=== PATIENT | female | born 1960 | race Caucasian/White ===

== ENCOUNTER 2016-12-28 13:34 | Inpatient (IN) | payer MEDICAID, OTHER ==
[~2016-12-28] VITALS: Ht 167.6 cm; Wt 77.3 kg
[~2016-12-28 13:34] MED LIST: FLUP10 PO; LAMO100 PO; OLAN10TA3 PO; TRAZ-147 PO
[2016-12-28] MEDS ORDERED: LORazepam 2 MG/ML VIAL IM ONE (14:00)
[2016-12-28] MEDS ORDERED: FluPHENAZine HCL 10 MG TABLET PO ONE (14:00)
[2016-12-28] MEDS ORDERED: DiphenhydrAMINE HCL 50 MG/ML VIAL IM ONE (14:00)
[2016-12-28 14:18] LABS: BASOPHILS % (AUTO) 0.4 % (0.0-2.0); EOSINOPHILS % (AUTO) 2.8 % (1.0-6.0); HEMATOCRIT 38.5 % (36-46); HEMOGLOBIN 12.5 g/dL (12.0-16.0); LYMPHOCYTES # (AUTO) 2.6 K/uL (1.0-4.8); LYMPHOCYTES % (AUTO) 30.6 % (22.0-44.0); MEAN CORPUSCULAR HEMOGLOBIN 30.4 pg (26.0-34.0); MEAN CORPUSCULAR HGB CONC 32.4 G/dL (31.0-37.0); MEAN CORPUSCULAR VOLUME 94 fL (80-100); MONOCYTES # (AUTO) 0.8 K/uL (0.1-1.0); MONOCYTES % (AUTO) 9.5 % (2.0-9.0); NEUTROPHILS # (AUTO) 4.8 K/uL (1.8-7.7); NEUTROPHILS % (AUTO) 56.7 % (40.0-70.0); PLATELET COUNT (AUTO) 304 K/uL (150-450); RED BLOOD CELL COUNT(AUTO) 4.11 MIL/uL (4.00-5.20); RED CELL DISTRIBUTION WIDTH 14.6 % (11.5-14.5); WHITE BLOOD COUNT (AUTO) 8.5 K/uL (4.5-11.0)
[2016-12-28 14:27] LABS: ANION GAP 12 mmol/L (8-16); CALCIUM, TOTAL 8.7 mg/dL (8.8-10.5); CARBON DIOXIDE 27 mmol/L (22-29); CHLORIDE 108 mmol/L (98-107); CREATININE 0.71 mg/dL (0.60-1.30); GLOMERULAR FILTR. RATE CALC > 60 mL/min (>60); POTASSIUM 3.4 mmol/L (3.5-5.1); SODIUM SERUM 147 mmol/L (136-145); UREA NITROGEN, BLOOD 17 mg/dL (7-18)
[2016-12-28 14:33] LABS: ALANINE AMINOTRANSFERASE 21 U/L (12-78); ALBUMIN 3.9 g/dL (3.4-5.0); ASPARTATE AMINOTRANSFERASE 17 U/L (15-37); BILIRUBIN,TOTAL 0.5 mg/dL (0.1-1.0); TOTAL PROTEIN, SERUM 7.1 g/dL (6.4-8.2)
[2016-12-28] MEDS ORDERED: HydrOXYzine PAMOATE 50 MG CAPSULE PO PRN (15:45)
[2016-12-28] MEDS ORDERED: MAGNESIUM HYDROXIDE SUSPENSION 30 ML UDCUP PO PRN (15:45)
[2016-12-28] MEDS ORDERED: GuaiFENesin/D-METHORPHAN [SUGAR-FREE] 200-20MG/10 ML SYRUP UDCUP PO PRN (15:45)
[2016-12-28] MEDS ORDERED: ZOLPIDEM TARTRATE 10 MG TABLET PO PRN (15:45)
[2016-12-28] MEDS ORDERED: PROMETHAZINE HCL 25 MG TABLET PO PRN (15:45)
[2016-12-28] MEDS ORDERED: OLANZapine 5 MG RAPDIS TABLET PO PRN (15:45)
[2016-12-28] MEDS ORDERED: ACETAMINOPHEN 325 MG TABLET PO PRN (15:45)
[2016-12-28] MEDS ORDERED: LOPERAMIDE HCL 2 MG CAPSULE PO PRN (15:45)
[2016-12-28] MEDS ORDERED: MAG HYDROX/AL HYDROX/SIMETH ES 30 ML SUSPENSION UDCUP PO PRN (15:45)
[2016-12-28] MEDS ORDERED: TUBERCULIN, PURIFIED PROTEIN DERIVATIVE 5 TU/0.1 ML SYG ID ONE (15:45)
[2016-12-28 18:53] VITALS: BP 119/71
[2016-12-28] MEDS ORDERED: INFLUENZA VIRUS VACCINE QVS 2016-17 (3YR+)/PF 60 MCG/0.5 ML SYRINGE IM ONE (19:30)
[2016-12-28] MEDS ORDERED: PNEUMOCOCCAL VACCINE POLYVALENT 0.5 ML VIAL [PPSV23] IM ONE (19:30)
[2016-12-28] MEDS: THIAMINE HCL 100 MG TABLET PO SCH (20:52)
[2016-12-28] MEDS: OLANZapine 5 MG RAPDIS TABLET PO SCH (21:00)
[2016-12-29] MEDS: THIAMINE HCL 100 MG TABLET PO SCH ×2 (08:54→17:16)
[2016-12-29] MEDS: FOLIC ACID 1 MG TABLET PO SCH (08:54)
[2016-12-29] MEDS: MULTIVITAMINS WITH MINERALS, THERAPEUTIC TABLET PO SCH (08:54)
[2016-12-29] MEDS ORDERED: LORazepam 2 MG/ML VIAL IM ONE (10:00)
[2016-12-29] MEDS ORDERED: FluPHENAZine HCL 2.5 MG/ML INJ IM ONE (10:00)
[2016-12-29] MEDS ORDERED: DiphenhydrAMINE HCL 50 MG/ML VIAL IM ONE (10:00)
[2016-12-29] MEDS ORDERED: TraZODone HCL 150 MG TABLET PO PRN (10:00)
[2016-12-29] MEDS ORDERED: POTASSIUM CHLORIDE 10 MEQ ER TABLET PO ONE (12:00)
[2016-12-29] MEDS: LORazepam 2 MG TABLET PO PRN (17:16)
[2016-12-29] MEDS: OLANZapine 5 MG RAPDIS TABLET PO SCH (20:29)
[2016-12-30] MEDS: MULTIVITAMINS WITH MINERALS, THERAPEUTIC TABLET PO SCH ×2 (09:00→09:27)
[2016-12-30] MEDS: LamoTRIgine 100 MG TABLET PO SCH ×2 (09:00→09:27)
[2016-12-30] MEDS: FOLIC ACID 1 MG TABLET PO SCH ×2 (09:00→09:26)
[2016-12-30] MEDS: THIAMINE HCL 100 MG TABLET PO SCH ×3 (09:00→16:20)
[2016-12-30] MEDS ORDERED: DiphenhydrAMINE HCL 50 MG/ML VIAL ONE (14:07)
[2016-12-30] MEDS ORDERED: DiphenhydrAMINE HCL 50 MG/ML VIAL IM ONE (14:15)
[2016-12-30] MEDS: BENZTROPINE MESYLATE 2 MG TABLET PO SCH (16:21)
[2016-12-30] MEDS: LORazepam 2 MG TABLET PO PRN (17:19)
[2016-12-30] MEDS ORDERED: PALI6 PO (17:30)
[2016-12-30] MEDS ORDERED: TRAZ150 PO (17:30)
[2016-12-30] MEDS ORDERED: BENZ2TAB10 PO (17:30)
[2016-12-30] MEDS ORDERED: PALIPERIDONE 3 MG ER TABLET PO PRN (17:30)
[2016-12-30] MEDS ORDERED: LAMO100 PO (17:30)
[2016-12-30] MEDS ORDERED: PALIPERIDONE PALMITATE 234 MG/1.5 ML SYRINGE IM ONE (17:30)
[2016-12-30] MEDS ORDERED: PALI234D IM (17:30)
[2016-12-30] MEDS ORDERED: PALIPERIDONE 6 MG ER TABLET PO SCH (21:00)
[2016-12-31 08:31] LABS: BASOPHILS % (AUTO) 0.7 % (0.0-2.0); HEMATOCRIT 41.1 % (36-46); HEMOGLOBIN 13.4 g/dL (12.0-16.0); LYMPHOCYTES # (AUTO) 2.2 K/uL (1.0-4.8); LYMPHOCYTES % (AUTO) 36.6 % (22.0-44.0); MEAN CORPUSCULAR HEMOGLOBIN 30.6 pg (26.0-34.0); MEAN CORPUSCULAR HGB CONC 32.6 G/dL (31.0-37.0); MEAN CORPUSCULAR VOLUME 94 fL (80-100); MONOCYTES # (AUTO) 0.5 K/uL (0.1-1.0); MONOCYTES % (AUTO) 8.7 % (2.0-9.0); PLATELET COUNT (AUTO) 266 K/uL (150-450); RED BLOOD CELL COUNT(AUTO) 4.38 MIL/uL (4.00-5.20); RED CELL DISTRIBUTION WIDTH 14.3 % (11.5-14.5)
[2016-12-31 09:00] LABS: ALANINE AMINOTRANSFERASE 17 U/L (12-78); ALBUMIN 3.4 g/dL (3.4-5.0); ANION GAP 10 mmol/L (8-16); ASPARTATE AMINOTRANSFERASE 18 U/L (15-37); BILIRUBIN,TOTAL 0.3 mg/dL (0.1-1.0); CALCIUM, TOTAL 8.6 mg/dL (8.8-10.5); CARBON DIOXIDE 26 mmol/L (22-29); CHLORIDE 107 mmol/L (98-107); CHOL/HDL RATIO 2.6 (3.9-5.7); CREATININE 0.74 mg/dL (0.60-1.30); GLOMERULAR FILTR. RATE CALC > 60 mL/min (>60); POTASSIUM 3.9 mmol/L (3.5-5.1); SODIUM SERUM 143 mmol/L (136-145); THYROID STIMULATING HORMONE 3.24 uIU/mL (0.36-3.74); TOTAL PROTEIN, SERUM 6.7 g/dL (6.4-8.2); UREA NITROGEN, BLOOD 15 mg/dL (7-18)
[2016-12-31] MEDS: FOLIC ACID 1 MG TABLET PO SCH (09:11)
[2016-12-31] MEDS: MULTIVITAMINS WITH MINERALS, THERAPEUTIC TABLET PO SCH (09:11)
[2016-12-31] MEDS: BENZTROPINE MESYLATE 2 MG TABLET PO SCH (09:11)
[2016-12-31] MEDS: LamoTRIgine 100 MG TABLET PO SCH (09:11)
[2016-12-31] MEDS: THIAMINE HCL 100 MG TABLET PO SCH (09:11)
[2016-12-31 10:16] LABS: HEMOGLOBIN A1C 5.2 % (4.5-6.2)
[2017-01-03] MEDS ORDERED: PALIPERIDONE PALMITATE 156 MG/ML SYRINGE IM ONE (09:00)
== END 2016-12-31 11:40 | disposition home or self-care (01) | DRG 753 ==
LOC: EMS 13:36 → B3A 15:06
PROVIDERS: ADMIT Psychiatry & Neurology Psychiatry; ATTEND Psychiatry & Neurology Psychiatry
PROC: GZ51ZZZ Individual Psychotherapy, Behavioral (ICD-10-PCS; principal; 2016-12-28)
DX: F31.2 Bipolar disorder, current episode manic severe with psychotic features (principal); Z91.19 Patient's noncompliance with other medical treatment and regimen; E86.0 Dehydration; E87.6 Hypokalemia; F15.90 Other stimulant use, unspecified, uncomplicated; F12.90 Cannabis use, unspecified, uncomplicated; J45.909 Unspecified asthma, uncomplicated; F17.210 Nicotine dependence, cigarettes, uncomplicated; Z87.891 Personal history of nicotine dependence; Z88.8 Allergy status to other drugs, medicaments and biological substances; Z98.890 Other specified postprocedural states; Z79.899 Other long term (current) drug therapy; Z82.49 Family history of ischemic heart disease and other diseases of the circulatory system
CPT/HCPCS: 83036; 84439; 84443; 86592; 93005; 96372; 99285; G0480; J1200; J2060; J3490

== ENCOUNTER 2017-04-26 20:50 | Inpatient (IN) | payer MEDICAID, OTHER ==
[~2017-04-26] VITALS: Ht 154.9 cm; Wt 68.0 kg
[~2017-04-26 20:50] MED LIST changes: +BENZ2TAB10 PO; -FLUP10 PO; -OLAN10TA3 PO; +PALI234D IM; +PALI6 PO; -TRAZ-147 PO; +TRAZ150 PO
[2017-04-26 21:39] LABS: BASOPHILS % (AUTO) 0.2 % (0.0-2.0); EOSINOPHILS % (AUTO) 1.4 % (1.0-6.0); HEMATOCRIT 38.8 % (36-46); HEMOGLOBIN 13.1 g/dL (12.0-16.0); LYMPHOCYTES # (AUTO) 2.4 K/uL (1.0-4.8); MEAN CORPUSCULAR HEMOGLOBIN 31.2 pg (26.0-34.0); MEAN CORPUSCULAR HGB CONC 33.9 G/dL (31.0-37.0); MEAN CORPUSCULAR VOLUME 92 fL (80-100); MONOCYTES # (AUTO) 1.6 K/uL (0.1-1.0); MONOCYTES % (AUTO) 12.5 % (2.0-9.0); NEUTROPHILS # (AUTO) 8.5 K/uL (1.8-7.7); NEUTROPHILS % (AUTO) 66.9 % (40.0-70.0); PLATELET COUNT (AUTO) 228 K/uL (150-450); RED BLOOD CELL COUNT(AUTO) 4.21 MIL/uL (4.00-5.20); RED CELL DISTRIBUTION WIDTH 13.8 % (11.5-14.5); WHITE BLOOD COUNT (AUTO) 12.7 K/uL (4.5-11.0)
[2017-04-26] MEDS ORDERED: FluPHENAZine HCL 2.5 MG/ML INJ IM ONE (21:45)
[2017-04-26] MEDS ORDERED: LORazepam 2 MG/ML VIAL IM ONE (21:45)
[2017-04-26] MEDS ORDERED: DiphenhydrAMINE HCL 50 MG/ML VIAL IM ONE (21:45)
[2017-04-26 21:57] LABS: ANION GAP 14 mmol/L (8-16); CALCIUM, TOTAL 9.4 mg/dL (8.8-10.5); CARBON DIOXIDE 22 mmol/L (22-29); CHLORIDE 106 mmol/L (98-107); CREATININE 0.81 mg/dL (0.60-1.30); GLOMERULAR FILTR. RATE CALC > 60 mL/min (>60); POTASSIUM 3.4 mmol/L (3.5-5.1); SODIUM SERUM 142 mmol/L (136-145); UREA NITROGEN, BLOOD 25 mg/dL (7-18)
[2017-04-26 22:03] LABS: ALANINE AMINOTRANSFERASE 21 U/L (12-78); ALBUMIN 4.2 g/dL (3.4-5.0); ASPARTATE AMINOTRANSFERASE 25 U/L (15-37); BILIRUBIN,TOTAL 0.9 mg/dL (0.1-1.0); TOTAL PROTEIN, SERUM 7.5 g/dL (6.4-8.2)
[2017-04-26] MEDS ORDERED: QUEtiapine FUMARATE 100 MG TABLET PO PRN (22:45)
[2017-04-26] MEDS ORDERED: ZOLPIDEM TARTRATE 10 MG TABLET PO PRN (22:45)
[2017-04-26 23:00] VITALS: BP 131/74
[2017-04-27] MEDS ORDERED: PNEUMOCOCCAL VACCINE POLYVALENT 0.5 ML VIAL [PPSV23] IM ONE (03:15)
[2017-04-27] MEDS ORDERED: -PHARMACY VACCINE NOTE- MISC ONE ×2 (03:15)
[2017-04-27 08:34] VITALS: BP 108/54
[2017-04-27] MEDS: BENZTROPINE MESYLATE 2 MG TABLET PO SCH ×3 (10:25→16:53)
[2017-04-27] MEDS: LamoTRIgine 100 MG TABLET PO SCH (10:25)
[2017-04-27] MEDS ORDERED: POTASSIUM CHLORIDE 20 MEQ ER TABLET PO ONE (10:30)
[2017-04-27] MEDS: LORazepam 2 MG TABLET PO PRN (16:53)
[2017-04-27] MEDS: PALIPERIDONE 6 MG ER TABLET PO SCH (16:53)
[2017-04-27] MEDS ORDERED: PALIPERIDONE 6 MG ER TABLET PO SCH (21:00)
[2017-04-27] MEDS ORDERED: TraZODone HCL 50 MG TABLET PO SCH (21:00)
[2017-04-28] MEDS ORDERED: PALI6 PO (07:56)
[2017-04-28] MEDS ORDERED: BENZ2TAB10 PO (07:56)
[2017-04-28 08:04] VITALS: BP 100/58
[2017-04-28] MEDS: PALIPERIDONE 6 MG ER TABLET PO SCH ×2 (08:44→16:02)
[2017-04-28] MEDS: LamoTRIgine 100 MG TABLET PO SCH (08:44)
[2017-04-28] MEDS: BENZTROPINE MESYLATE 2 MG TABLET PO SCH ×2 (08:44→16:03)
[2017-04-28] MEDS: LORazepam 2 MG TABLET PO PRN (08:44)
[2017-04-28] MEDS ORDERED: TRAZ150 PO (15:06)
== END 2017-04-28 16:10 | disposition home or self-care (01) | DRG 751 ==
LOC: EMS 20:52 → B3A 23:12
PROVIDERS: ADMIT Psychiatry & Neurology Child & Adolescent Psychiatry; ATTEND Psychiatry & Neurology Child & Adolescent Psychiatry
DX: F29 Unspecified psychosis not due to a substance or known physiological condition (principal); F15.20 Other stimulant dependence, uncomplicated; F31.9 Bipolar disorder, unspecified; E87.6 Hypokalemia; F17.210 Nicotine dependence, cigarettes, uncomplicated; J45.909 Unspecified asthma, uncomplicated; R45.87 Impulsiveness; D64.9 Anemia, unspecified; F12.90 Cannabis use, unspecified, uncomplicated; D72.828 Other elevated white blood cell count; R73.03 Prediabetes; Z88.8 Allergy status to other drugs, medicaments and biological substances
CPT/HCPCS: 99285; 99406; G0480; J1200; J2060; J3490

== ENCOUNTER 2017-07-18 21:05 | Inpatient (IN) | payer MEDICAID, OTHER ==
[~2017-07-18] VITALS: Ht 167.6 cm; Wt 70.5 kg
[~2017-07-18 21:05] MED LIST changes: -PALI234D IM
[2017-07-18] MEDS ORDERED: LORazepam 2 MG/ML VIAL IM ONE (22:00)
[2017-07-18] MEDS ORDERED: DiphenhydrAMINE HCL 50 MG/ML VIAL IM ONE (22:00)
[2017-07-18 22:26] LABS: BASOPHILS # (AUTO) 0.04 K/uL (0.00-0.20); BASOPHILS % (AUTO) 0.3 % (0.0-2.0); EOSINOPHILS # (AUTO) 0.15 K/uL (0.00-0.70); EOSINOPHILS % (AUTO) 1.31 % (1.0-6.0); HEMATOCRIT 38.5 % (36-46); HEMOGLOBIN 13.1 g/dL (12.0-16.0); MEAN CORPUSCULAR HEMOGLOBIN 31.4 pg (26.0-34.0); MEAN CORPUSCULAR HGB CONC 33.9 G/dL (31.0-37.0); MEAN CORPUSCULAR VOLUME 92 fL (80-100); MONOCYTES # (AUTO) 1.1 K/uL (0.1-1.0); MONOCYTES % (AUTO) 9.2 % (2.0-9.0); NEUTROPHILS # (AUTO) 8.6 K/uL (1.8-7.7); NEUTROPHILS % (AUTO) 72.2 % (40.0-70.0); PLATELET COUNT (AUTO) 250 K/uL (150-450); RED BLOOD CELL COUNT(AUTO) 4.17 MIL/uL (4.00-5.20); RED CELL DISTRIBUTION WIDTH 13.5 % (11.5-14.5); WHITE BLOOD COUNT (AUTO) 11.8 K/uL (4.5-11.0)
[2017-07-18 22:41] LABS: ANION GAP 11 mmol/L (8-16); CALCIUM, TOTAL 9.2 mg/dL (8.8-10.5); CARBON DIOXIDE 23 mmol/L (22-29); CHLORIDE 104 mmol/L (98-107); CREATININE 0.74 mg/dL (0.60-1.30); GLOMERULAR FILTR. RATE CALC > 60 mL/min (>60); POTASSIUM 3.4 mmol/L (3.5-5.1); SODIUM SERUM 138 mmol/L (136-145); UREA NITROGEN, BLOOD 25 mg/dL (7-18)
[2017-07-18 22:47] LABS: ALANINE AMINOTRANSFERASE 21 U/L (12-78); ALBUMIN 4.3 g/dL (3.4-5.0); ASPARTATE AMINOTRANSFERASE 28 U/L (15-37); BILIRUBIN,TOTAL 0.7 mg/dL (0.1-1.0); TOTAL PROTEIN, SERUM 7.7 g/dL (6.4-8.2)
[2017-07-18] MEDS ORDERED: POTASSIUM CHLORIDE 10% 40 MEQ/30 ML LIQUID UDCUP PO ONE (23:30)
[2017-07-18] MEDS ORDERED: ZOLPIDEM TARTRATE 10 MG TABLET PO PRN (23:45)
[2017-07-18] MEDS ORDERED: HALOPERIDOL 5 MG TABLET PO PRN (23:45)
[2017-07-19 02:03] LABS: CHOL/HDL RATIO 2.9 (3.9-5.7)
[2017-07-19] MEDS ORDERED: FluPHENAZine HCL 2.5 MG/ML INJ IM ONE (15:45)
[2017-07-19] MEDS ORDERED: LORazepam 2 MG/ML VIAL IM ONE ×2 (15:45)
[2017-07-19] MEDS ORDERED: DiphenhydrAMINE HCL 50 MG/ML VIAL IM ONE ×2 (15:45)
[2017-07-19 17:07] VITALS: BP 110/73
[2017-07-19] MEDS ORDERED: IBUPROFEN 400 MG TABLET PO PRN (21:15)
[2017-07-19] MEDS ORDERED: ACETAMINOPHEN 325 MG TABLET PO PRN (21:15)
[2017-07-20 08:19] VITALS: BP 117/79
[2017-07-20 09:02] LABS: POTASSIUM 3.6 mmol/L (3.5-5.1); THYROID STIMULATING HORMONE 1.09 uIU/mL (0.36-3.74)
[2017-07-20] MEDS ORDERED: BENZTROPINE MESYLATE 1 MG/ML 2 ML VIAL IM ONE (11:00)
[2017-07-20] MEDS ORDERED: BENZTROPINE MESYLATE 1 MG/ML 2 ML VIAL ONE (11:02)
[2017-07-20] MEDS ORDERED: GuaiFENesin/D-METHORPHAN [SUGAR-FREE] 200-20MG/10 ML SYRUP UDCUP PO PRN (14:15)
[2017-07-20] MEDS ORDERED: ACETAMINOPHEN 325 MG TABLET PO PRN (14:15)
[2017-07-20] MEDS ORDERED: PALIPERIDONE PALMITATE 234 MG/1.5 ML SYRINGE IM ONE (14:15)
[2017-07-20] MEDS ORDERED: HydrOXYzine PAMOATE 50 MG CAPSULE PO PRN (14:15)
[2017-07-20] MEDS ORDERED: MAGNESIUM HYDROXIDE SUSPENSION 30 ML UDCUP PO PRN (14:15)
[2017-07-20] MEDS ORDERED: PALIPERIDONE 3 MG ER TABLET PO PRN (14:15)
[2017-07-20] MEDS ORDERED: MAG HYDROX/AL HYDROX/SIMETH ES 30 ML SUSPENSION UDCUP PO PRN (14:15)
[2017-07-20] MEDS ORDERED: TUBERCULIN, PURIFIED PROTEIN DERIVATIVE 5 TU/0.1 ML SYG ID ONE (14:15)
[2017-07-20] MEDS ORDERED: LOPERAMIDE HCL 2 MG CAPSULE PO PRN (14:15)
[2017-07-20] MEDS ORDERED: PROMETHAZINE HCL 25 MG TABLET PO PRN (14:15)
[2017-07-20 16:12] VITALS: BP 119/68
[2017-07-20] MEDS: LORazepam 2 MG TABLET PO PRN (16:48)
[2017-07-20] MEDS: THIAMINE HCL 100 MG TABLET PO SCH (16:49)
[2017-07-20] MEDS ORDERED: OLANZapine 5 MG RAPDIS TABLET PO PRN (17:30)
[2017-07-20] MEDS ORDERED: OLANZapine 5 MG RAPDIS TABLET PO SCH (21:00)
[2017-07-20] MEDS ORDERED: PALIPERIDONE 6 MG ER TABLET PO SCH (21:00)
[2017-07-21] MEDS ORDERED: BENZOCAINE/MENTHOL LOZENGE PO PRN (08:15)
[2017-07-21 08:55] VITALS: BP 103/58
[2017-07-21] MEDS: NALTREXONE HCL 50 MG TABLET PO SCH (09:00)
[2017-07-21] MEDS: MULTIVITAMINS WITH MINERALS, THERAPEUTIC TABLET PO SCH (09:47)
[2017-07-21] MEDS: LamoTRIgine 100 MG TABLET PO SCH (09:47)
[2017-07-21] MEDS: FOLIC ACID 1 MG TABLET PO SCH (09:47)
[2017-07-21] MEDS: THIAMINE HCL 100 MG TABLET PO SCH ×2 (09:47→17:06)
[2017-07-21] MEDS: LORazepam 2 MG TABLET PO PRN ×2 (10:39→15:56)
[2017-07-21 16:27] VITALS: BP 120/69
[2017-07-21] MEDS ORDERED: NALT50TA PO (16:32)
[2017-07-21] MEDS ORDERED: LAMO100 PO (16:32)
[2017-07-21] MEDS ORDERED: OLAN5TAB30 PO (16:32)
[2017-07-21] MEDS ORDERED: OLANZapine 5 MG RAPDIS TABLET PO SCH (21:00)
[2017-07-22 07:01] VITALS: BP 116/64
[2017-07-22 08:19] VITALS: BP 115/69
[2017-07-22] MEDS: THIAMINE HCL 100 MG TABLET PO SCH (08:37)
[2017-07-22] MEDS: LamoTRIgine 100 MG TABLET PO SCH (08:37)
[2017-07-22] MEDS: FOLIC ACID 1 MG TABLET PO SCH (08:37)
[2017-07-22] MEDS: NALTREXONE HCL 50 MG TABLET PO SCH (08:37)
[2017-07-22] MEDS: MULTIVITAMINS WITH MINERALS, THERAPEUTIC TABLET PO SCH (08:37)
[2017-07-22] MEDS ORDERED: NALT50TA6 PO (09:43)
[2017-07-22] MEDS ORDERED: OLAN10TA3 PO (09:43)
[2017-07-24] MEDS ORDERED: PALIPERIDONE PALMITATE 156 MG/ML SYRINGE IM ONE (09:00)
== END 2017-07-22 11:55 | disposition home or self-care (01) | DRG 753 ==
LOC: EMS 21:07 → B3A 07-19 13:18
PROVIDERS: ADMIT Psychiatry & Neurology Child & Adolescent Psychiatry; ATTEND Psychiatry & Neurology Psychiatry
DX: F31.9 Bipolar disorder, unspecified (principal); F25.9 Schizoaffective disorder, unspecified; E11.9 Type 2 diabetes mellitus without complications; J44.9 Chronic obstructive pulmonary disease, unspecified; D72.829 Elevated white blood cell count, unspecified; E87.6 Hypokalemia; F12.90 Cannabis use, unspecified, uncomplicated; Z82.49 Family history of ischemic heart disease and other diseases of the circulatory system; Z83.3 Family history of diabetes mellitus; Z87.891 Personal history of nicotine dependence; Z91.19 Patient's noncompliance with other medical treatment and regimen; Z88.8 Allergy status to other drugs, medicaments and biological substances
CPT/HCPCS: 84132; 84436; 84439; 84443; 96372; 99291; G0480; J0515; J1200; J2060; J3490

== ENCOUNTER 2018-09-04 21:18 | Emergency (ER) | payer MEDICAID ==
[~2018-09-04] VITALS: Ht 170.2 cm; Wt 81.8 kg
[~2018-09-04 21:18] MED LIST changes: -BENZ2TAB10 PO; +NALT50TA PO; +NALT50TA6 PO; +OLAN10TA3 PO; +OLAN5TAB30 PO; -PALI6 PO; -TRAZ150 PO
[2018-09-04] MEDS ORDERED: SODIUM CHLORIDE 0.9% 1,000 ML IV ONE (21:37)
[2018-09-04] MEDS ORDERED: ONDANSETRON HCL 4 MG/2 ML VIAL IVP ONE (21:45)
[2018-09-04 22:06] LABS: BASOPHILS % (AUTO) 0.3 % (0.0-2.0); EOSINOPHILS % (AUTO) 1.3 % (1.0-6.0); HEMATOCRIT 39.7 % (36-46); HEMOGLOBIN 13.5 g/dL (12.0-16.0); LYMPHOCYTES # (AUTO) 0.6 K/uL (1.0-4.8); LYMPHOCYTES % (AUTO) 4.8 % (22.0-44.0); MEAN CORPUSCULAR HEMOGLOBIN 29.5 pg (26.0-34.0); MEAN CORPUSCULAR HGB CONC 34.1 G/dL (31.0-37.0); MEAN CORPUSCULAR VOLUME 87 fL (80-100); MONOCYTES # (AUTO) 0.7 K/uL (0.1-1.0); MONOCYTES % (AUTO) 5.9 % (2.0-9.0); NEUTROPHILS # (AUTO) 10.4 K/uL (1.8-7.7); NEUTROPHILS % (AUTO) 87.7 % (40.0-70.0); PLATELET COUNT (AUTO) 265 K/uL (150-450); RED BLOOD CELL COUNT(AUTO) 4.59 MIL/uL (4.00-5.20); RED CELL DISTRIBUTION WIDTH 14.1 % (11.5-14.5)
[2018-09-04 22:15] LABS: ANION GAP 6 mmol/L (8-16); CALCIUM, TOTAL 8.9 mg/dL (8.8-10.5); CARBON DIOXIDE 27 mmol/L (22-29); CHLORIDE 109 mmol/L (98-107); CREATININE 0.75 mg/dL (0.60-1.30); GLOMERULAR FILTR. RATE CALC > 60 mL/min (>60); GLUCOSE,RANDOM 133 mg/dL (70-110); POTASSIUM 3.7 mmol/L (3.5-5.1); SODIUM SERUM 142 mmol/L (136-145); UREA NITROGEN, BLOOD 18 mg/dL (7-18)
[2018-09-04 22:20] LABS: ALANINE AMINOTRANSFERASE 35 U/L (12-78); ALBUMIN 3.9 g/dL (3.4-5.0); ALKALINE PHOSPHATASE 102 U/L (46-116); ASPARTATE AMINOTRANSFERASE 38 U/L (15-37); BILIRUBIN,TOTAL 0.5 mg/dL (0.1-1.0); LIPASE 94 U/L (73-393); TOTAL PROTEIN, SERUM 7.5 g/dL (6.4-8.2)
[2018-09-04 22:21] LABS: PLATELET MORPHOLOGY COMMENT LARGE PLTS PRESENT
[2018-09-05] MEDS ORDERED: SODIUM CHLORIDE 0.9% 1,000 ML IV ONE ×2 (00:45→03:00)
[2018-09-05] MEDS ORDERED: ONDANSETRON HCL 4 MG/2 ML VIAL IVP ONE (01:45)
[2018-09-05 03:57] LABS: C.DIFF GDH ANTIGEN, Stool Negative (Negative); C.DIFF TOXINS A&B, Stool Negative (Negative)
[2018-09-05] MEDS ORDERED: LOPERAMIDE HCL 2 MG CAPSULE PO ONE (04:30)
[2018-09-05 04:41] VITALS: BP 132/69
== END 2018-09-05 05:00 | disposition home or self-care (01) ==
LOC: EMS 21:18
DX: K52.9 Noninfective gastroenteritis and colitis, unspecified (principal); E86.0 Dehydration; J45.909 Unspecified asthma, uncomplicated; F31.9 Bipolar disorder, unspecified; F20.9 Schizophrenia, unspecified; F17.210 Nicotine dependence, cigarettes, uncomplicated; F12.90 Cannabis use, unspecified, uncomplicated; Z88.8 Allergy status to other drugs, medicaments and biological substances; Z79.899 Other long term (current) drug therapy
CPT/HCPCS: 36415; 80053; 83690; 83880; 85025; 87045; 87324; 87427; 87449; 89055; 96361; 96374; 96376; 99284; J2405 ×2; J7030 ×2

== ENCOUNTER 2018-09-07 17:52 | Emergency (ER) | payer MEDICAID ==
[~2018-09-07] VITALS: Ht 167.6 cm; Wt 81.8 kg
[~2018-09-07 17:52] MED LIST changes: -NALT50TA6 PO; -OLAN10TA3 PO
[2018-09-07] MEDS: LOPERAMIDE HCL 2 MG CAPSULE PO ONE (18:27)
[2018-09-07 19:53] VITALS: BP 132/79
== END 2018-09-07 19:54 | disposition home or self-care (01) ==
LOC: EMS 17:53
DX: R19.7 Diarrhea, unspecified (principal); J40 Bronchitis, not specified as acute or chronic; F20.9 Schizophrenia, unspecified; R10.32 Left lower quadrant pain; J45.909 Unspecified asthma, uncomplicated; F31.9 Bipolar disorder, unspecified; F12.90 Cannabis use, unspecified, uncomplicated; Z88.8 Allergy status to other drugs, medicaments and biological substances

== ENCOUNTER 2019-01-12 09:52 | Inpatient (IN) | payer MEDICAID ==
[~2019-01-12] VITALS: Ht 167.6 cm; Wt 74.1 kg
[2019-01-12] MEDS ORDERED: ACETAMINOPHEN 325 MG TABLET PO PRN ×2 (12:00→17:45)
[2019-01-12] MEDS ORDERED: IBUPROFEN 400 MG TABLET PO PRN ×2 (12:00→17:45)
[2019-01-12] MEDS ORDERED: DiphenhydrAMINE HCL 50 MG/ML VIAL IM ONE ×2 (12:15→19:15)
[2019-01-12] MEDS ORDERED: LORazepam 2 MG/ML VIAL IM ONE ×3 (12:15→19:15)
[2019-01-12] MEDS ORDERED: FluPHENAZine HCL 2.5 MG/ML INJ IM ONE ×2 (12:15→19:15)
[2019-01-12 15:15] LABS: BASOPHILS % (AUTO) 0.4 % (0.0-2.0); EOSINOPHILS % (AUTO) 0.9 % (1.0-6.0); HEMATOCRIT 34.5 % (36-46); HEMOGLOBIN 11.5 g/dL (12.0-16.0); LYMPHOCYTES % (AUTO) 26.7 % (22.0-44.0); MEAN CORPUSCULAR HEMOGLOBIN 30.3 pg (26.0-34.0); MEAN CORPUSCULAR HGB CONC 33.2 G/dL (31.0-37.0); MEAN CORPUSCULAR VOLUME 91 fL (80-100); MONOCYTES # (AUTO) 0.8 K/uL (0.1-1.0); MONOCYTES % (AUTO) 10.7 % (2.0-9.0); NEUTROPHILS # (AUTO) 4.6 K/uL (1.8-7.7); NEUTROPHILS % (AUTO) 61.3 % (40.0-70.0); PLATELET COUNT (AUTO) 279 K/uL (150-450); RED BLOOD CELL COUNT(AUTO) 3.79 MIL/uL (4.00-5.20); RED CELL DISTRIBUTION WIDTH 13.8 % (11.5-14.5)
[2019-01-12 15:29] LABS: ALANINE AMINOTRANSFERASE 25 U/L (12-78); ALBUMIN 3.9 g/dL (3.4-5.0); ALKALINE PHOSPHATASE 70 U/L (46-116); ANION GAP 13 mmol/L (8-16); ASPARTATE AMINOTRANSFERASE 25 U/L (15-37); BILIRUBIN,TOTAL 0.5 mg/dL (0.1-1.0); CALCIUM, TOTAL 9.4 mg/dL (8.8-10.5); CARBON DIOXIDE 24 mmol/L (22-29); CHLORIDE 106 mmol/L (98-107); CREATININE 0.56 mg/dL (0.60-1.30); GLOMERULAR FILTR. RATE CALC > 60 mL/min (>60); GLUCOSE,RANDOM 95 mg/dL (70-110); SODIUM SERUM 143 mmol/L (136-145); TOTAL PROTEIN, SERUM 7.3 g/dL (6.4-8.2); UREA NITROGEN, BLOOD 15 mg/dL (7-18)
[2019-01-12 15:37] LABS: POTASSIUM 2.9 mmol/L (3.5-5.1)
[2019-01-12] MEDS ORDERED: POTASSIUM CHLORIDE 20 MEQ ER TABLET PO ONE (15:45)
[2019-01-12 16:14] VITALS: BP 125/78
[2019-01-12] MEDS: OLANZapine 5 MG TABLET PO SCH (17:00)
[2019-01-12] MEDS ORDERED: DOCUSATE SODIUM 100 MG CAPSULE PO PRN (17:45)
[2019-01-12] MEDS ORDERED: GuaiFENesin/D-METHORPHAN [SUGAR-FREE] 200-20MG/10 ML SYRUP UDCUP PO PRN (17:45)
[2019-01-12] MEDS ORDERED: MAGNESIUM HYDROXIDE SUSPENSION 30 ML UDCUP PO PRN (17:45)
[2019-01-12] MEDS ORDERED: PETROLATUM,WHITE 28 GM JELLY TP PRN (17:45)
[2019-01-12] MEDS ORDERED: ONDANSETRON HCL 4 MG TABLET PO PRN (17:45)
[2019-01-12] MEDS ORDERED: LOPERAMIDE HCL 2 MG CAPSULE PO PRN (17:45)
[2019-01-12] MEDS ORDERED: ALBUTEROL SULFATE HFA 90 MCG/PUFF 8 GM INHALER IH PRN (17:45)
[2019-01-12] MEDS ORDERED: MAG HYDROX/AL HYDROX/SIMETH ES 30 ML SUSPENSION UDCUP PO PRN (17:45)
[2019-01-12] MEDS ORDERED: NICOTINE 14 MG/24 HOUR PATCH TD PRN (17:45)
[2019-01-12] MEDS ORDERED: CloNIDine HCL 0.1 MG TABLET PO PRN (17:45)
[2019-01-13] MEDS: OLANZapine 5 MG TABLET PO SCH (09:00)
[2019-01-13] MEDS ORDERED: LAMO100 PO (12:19)
[2019-01-13] MEDS ORDERED: TRAZ150 PO (12:19)
[2019-01-13] MEDS ORDERED: ZIPR40CA2 PO (12:19)
[2019-01-13] MEDS: LamoTRIgine 100 MG TABLET PO SCH (13:30)
[2019-01-13] MEDS ORDERED: POTASSIUM CHLORIDE 10 MEQ ER TABLET PO ONE (15:15)
[2019-01-13] MEDS: LORazepam 2 MG TABLET PO PRN (17:02)
[2019-01-13] MEDS: ZIPRASIDONE HCL 40 MG CAPSULE PO SCH (17:22)
[2019-01-13 18:27] VITALS: BP 117/65
[2019-01-13] MEDS: TraZODone HCL 150 MG TABLET PO SCH (20:03)
[2019-01-14] MEDS: ZIPRASIDONE HCL 40 MG CAPSULE PO SCH ×2 (07:05→17:43)
[2019-01-14 08:30] VITALS: BP 145/69
[2019-01-14] MEDS: LamoTRIgine 100 MG TABLET PO SCH (08:59)
[2019-01-14] MEDS: LORazepam 2 MG TABLET PO PRN ×2 (09:00→14:44)
[2019-01-14 09:37] LABS: BASOPHILS % (AUTO) 0.9 % (0.0-2.0); EOSINOPHILS % (AUTO) 5.1 % (1.0-6.0); HEMATOCRIT 35.6 % (36-46); HEMOGLOBIN 11.6 g/dL (12.0-16.0); LYMPHOCYTES % (AUTO) 38.5 % (22.0-44.0); MEAN CORPUSCULAR HGB CONC 32.5 G/dL (31.0-37.0); MEAN CORPUSCULAR VOLUME 92 fL (80-100); MONOCYTES # (AUTO) 0.4 K/uL (0.1-1.0); MONOCYTES % (AUTO) 6.9 % (2.0-9.0); NEUTROPHILS # (AUTO) 2.6 K/uL (1.8-7.7); NEUTROPHILS % (AUTO) 48.6 % (40.0-70.0); PLATELET COUNT (AUTO) 303 K/uL (150-450); RED BLOOD CELL COUNT(AUTO) 3.85 MIL/uL (4.00-5.20)
[2019-01-14 09:45] LABS: HEMOGLOBIN A1C 5.9 % (4.5-6.2)
[2019-01-14 10:03] LABS: ALANINE AMINOTRANSFERASE 23 U/L (12-78); ALBUMIN 3.3 g/dL (3.4-5.0); ALKALINE PHOSPHATASE 71 U/L (46-116); ANION GAP 9 mmol/L (8-16); ASPARTATE AMINOTRANSFERASE 23 U/L (15-37); BILIRUBIN,TOTAL 0.4 mg/dL (0.1-1.0); CALCIUM, TOTAL 8.9 mg/dL (8.8-10.5); CARBON DIOXIDE 28 mmol/L (22-29); CHLORIDE 105 mmol/L (98-107); CHOL/HDL RATIO 3.1 (3.9-5.7); CHOLESTEROL 150 mg/dL (131-200); CREATININE 0.71 mg/dL (0.60-1.30); GLOMERULAR FILTR. RATE CALC > 60 mL/min (>60); GLUCOSE,RANDOM 94 mg/dL (70-110); HDL CHOLESTEROL 48 mg/dL (40-60); LDL CHOL (CALC.) 84 mg/dL (0-130); SODIUM SERUM 142 mmol/L (136-145); THYROID STIMULATING HORMONE 1.69 uIU/mL (0.36-3.74); TOTAL PROTEIN, SERUM 6.6 g/dL (6.4-8.2); TRIGLYCERIDES 90 mg/dL (15-150); UREA NITROGEN, BLOOD 14 mg/dL (7-18)
[2019-01-14 18:00] VITALS: BP 129/75
[2019-01-14] MEDS: TraZODone HCL 150 MG TABLET PO SCH (20:07)
[2019-01-14] MEDS: ZOLPIDEM TARTRATE 10 MG TABLET PO PRN (20:33)
[2019-01-15] MEDS: ZIPRASIDONE HCL 40 MG CAPSULE PO SCH ×2 (06:49→17:30)
[2019-01-15 08:00] VITALS: BP 109/67
[2019-01-15] MEDS: LamoTRIgine 100 MG TABLET PO SCH (08:18)
[2019-01-15] MEDS: LORazepam 2 MG TABLET PO PRN ×3 (08:19→16:48)
[2019-01-15 16:42] VITALS: BP 102/61
[2019-01-15] MEDS: TraZODone HCL 150 MG TABLET PO SCH (21:24)
[2019-01-15] MEDS: ZOLPIDEM TARTRATE 10 MG TABLET PO PRN (21:32)
[2019-01-16] MEDS: ZIPRASIDONE HCL 40 MG CAPSULE PO SCH (07:05)
[2019-01-16] MEDS: LORazepam 2 MG TABLET PO PRN ×2 (07:49→13:02)
[2019-01-16 08:00] VITALS: BP 109/67
[2019-01-16] MEDS: LamoTRIgine 100 MG TABLET PO SCH (08:03)
[2019-01-16 17:24] VITALS: BP 113/69
[2019-01-16] MEDS: HydrOXYzine HCL 50 MG TABLET PO SCH (18:17)
[2019-01-16] MEDS: PALIPERIDONE 6 MG ER TABLET PO SCH (21:08)
[2019-01-16] MEDS: TraZODone HCL 150 MG TABLET PO SCH (21:08)
[2019-01-17] MEDS: LamoTRIgine 100 MG TABLET PO SCH (08:09)
[2019-01-17] MEDS: HydrOXYzine HCL 50 MG TABLET PO SCH ×2 (08:09→16:10)
[2019-01-17] MEDS: LORazepam 2 MG TABLET PO PRN ×3 (08:09→17:55)
[2019-01-17 16:37] VITALS: BP 127/75
[2019-01-17] MEDS: TraZODone HCL 150 MG TABLET PO SCH (21:09)
[2019-01-17] MEDS: PALIPERIDONE 6 MG ER TABLET PO SCH (21:09)
[2019-01-18 08:55] VITALS: BP 108/82
[2019-01-18] MEDS: LamoTRIgine 100 MG TABLET PO SCH (08:55)
[2019-01-18] MEDS: HydrOXYzine HCL 50 MG TABLET PO SCH ×2 (08:58→16:41)
[2019-01-18] MEDS: LORazepam 2 MG TABLET PO PRN ×3 (09:27→20:06)
[2019-01-18 16:00] VITALS: BP 121/73
[2019-01-18] MEDS: TraZODone HCL 150 MG TABLET PO SCH (20:06)
[2019-01-18] MEDS: PALIPERIDONE 6 MG ER TABLET PO SCH (20:06)
[2019-01-19] MEDS ORDERED: FERROUS SULFATE 325 MG EC TABLET PO SCH (07:30)
[2019-01-19 08:00] VITALS: BP 112/60
[2019-01-19] MEDS: LamoTRIgine 100 MG TABLET PO SCH (08:26)
[2019-01-19] MEDS: HydrOXYzine HCL 50 MG TABLET PO SCH (08:26)
[2019-01-19] MEDS: LORazepam 2 MG TABLET PO PRN (08:26)
[2019-01-19] MEDS ORDERED: PALI6 PO (13:17)
[2019-01-19] MEDS ORDERED: HYD50 PO (13:17)
[2019-01-19] MEDS ORDERED: FERR-89 PO (13:19)
== END 2019-01-19 15:45 | disposition home or self-care (01) | DRG 750 ==
LOC: EMS 09:55 → 3EC 13:52
PROVIDERS: ADMIT Psychiatry & Neurology Psychiatry; ATTEND Psychiatry & Neurology Psychiatry
DX: F25.0 Schizoaffective disorder, bipolar type (principal); Z59.0 Homelessness; D64.9 Anemia, unspecified; F41.9 Anxiety disorder, unspecified; G47.00 Insomnia, unspecified; E87.6 Hypokalemia; F17.200 Nicotine dependence, unspecified, uncomplicated; J45.909 Unspecified asthma, uncomplicated; F12.90 Cannabis use, unspecified, uncomplicated; F15.90 Other stimulant use, unspecified, uncomplicated
CPT/HCPCS: 83036; 84443; 96372; 99291; G0480; J1200; J2060; J3490

== ENCOUNTER 2020-08-09 13:04 | Emergency (ER) | payer MEDICAID ==
[~2020-08-09] VITALS: Ht 167.6 cm; Wt 83.2 kg
[~2020-08-09 13:04] MED LIST changes: +FERR-89 PO; +HYD50 PO; -NALT50TA PO; -OLAN5TAB30 PO; +PALI6TAB15 PO; +TRAZ150 PO
[2020-08-09] MEDS ORDERED: LORazepam 2 MG/ML VIAL IM ONE (15:00)
[2020-08-09] MEDS ORDERED: DiphenhydrAMINE HCL 50 MG/ML VIAL IM ONE (15:00)
[2020-08-09 15:23] VITALS: BP 142/73
[2020-08-09] MEDS ORDERED: PERTUSS(ACELL),DIPH,TET VAC/PF 0.5 ML VIAL IM ONE (15:45)
[2020-08-09] MEDS ORDERED: LIDOCAINE/PF 1% 2 ML VIAL IM ONE (15:45)
[2020-08-09] MEDS ORDERED: CefTRIAXone SODIUM 1 GM/VIAL IM ONE (15:45)
[2020-08-09] MEDS ORDERED: FentaNYL CITRATE-PF 100 MCG/2 ML VIAL IM ONE (16:00)
== END 2020-08-09 17:46 | disposition short-term general hospital (02) ==
LOC: EMS 13:04
DX: S82.62XB Displaced fracture of lateral malleolus of left fibula, initial encounter for open fracture type I or II (principal); F31.9 Bipolar disorder, unspecified; F20.9 Schizophrenia, unspecified; F12.90 Cannabis use, unspecified, uncomplicated; F19.90 Other psychoactive substance use, unspecified, uncomplicated; J45.909 Unspecified asthma, uncomplicated; Z88.8 Allergy status to other drugs, medicaments and biological substances; X58.XXXA Exposure to other specified factors, initial encounter; Y93.89 Activity, other specified; Y92.89 Other specified places as the place of occurrence of the external cause; Y99.8 Other external cause status
CPT/HCPCS: 73610; 90471; 90715; 96372; 99291; J0696; J1200; J2060; J3010; J3490

== ENCOUNTER 2021-01-08 13:50 | Inpatient (IN) | payer MEDICAID ==
[~2021-01-08] VITALS: Ht 172.7 cm; Wt 82.2 kg
[2021-01-08] MEDS ORDERED: BUSP5TAB20 PO (15:16)
[2021-01-08 15:44] LABS: COVID AG,FIA SOURCE NASOPHARYNGEAL
[2021-01-08 16:19] LABS: BASOPHILS % (AUTO) 0.4 % (0.0-2.0); EOSINOPHILS % (AUTO) 1.5 % (1.0-6.0); HEMATOCRIT 37.4 % (36-46); HEMOGLOBIN 12.4 g/dL (12.0-16.0); LYMPHOCYTES # (AUTO) 1.9 K/uL (1.0-4.8); MEAN CORPUSCULAR HEMOGLOBIN 30.8 pg (26.0-34.0); MEAN CORPUSCULAR HGB CONC 33.1 G/dL (31.0-37.0); MEAN CORPUSCULAR VOLUME 93 fL (80-100); MONOCYTES # (AUTO) 0.6 K/uL (0.1-1.0); MONOCYTES % (AUTO) 9.8 % (2.0-9.0); NEUTROPHILS # (AUTO) 3.9 K/uL (1.8-7.7); NEUTROPHILS % (AUTO) 59.3 % (40.0-70.0); PLATELET COUNT (AUTO) 317 K/uL (150-450); RED BLOOD CELL COUNT(AUTO) 4.02 MIL/uL (4.00-5.20); RED CELL DISTRIBUTION WIDTH 14.5 % (11.5-14.5)
[2021-01-08 16:30] LABS: ANION GAP 12 mmol/L (8-16); CALCIUM, TOTAL 9.1 mg/dL (8.8-10.5); CARBON DIOXIDE 25 mmol/L (22-29); CHLORIDE 104 mmol/L (98-107); CREATININE 0.87 mg/dL (0.60-1.30); GLOMERULAR FILTR. RATE CALC > 60 mL/min (>60); GLUCOSE,RANDOM 110 mg/dL (70-110); POTASSIUM 3.8 mmol/L (3.5-5.1); SODIUM SERUM 141 mmol/L (136-145); UREA NITROGEN, BLOOD 14 mg/dL (7-18)
[2021-01-08] MEDS ORDERED: LORazepam 2 MG TABLET PO ONE (16:30)
[2021-01-08 16:36] LABS: ALANINE AMINOTRANSFERASE 24 U/L (12-78); ALKALINE PHOSPHATASE 84 U/L (46-116); ASPARTATE AMINOTRANSFERASE 23 U/L (15-37); BILIRUBIN,TOTAL 0.4 mg/dL (0.1-1.0); TOTAL PROTEIN, SERUM 7.4 g/dL (6.4-8.2)
[2021-01-08 16:41] LABS: ACETAMINOPHEN < 2 mcg/mL (10-30)
[2021-01-08] MEDS ORDERED: FluPHENAZine HCL 5 MG TABLET PO ONE (18:00)
[2021-01-08 18:05] LABS: AMPHET/METH SCREEN,URINE NEGATIVE (NEGATIVE); BARBITURATE SCREEN, URINE NEGATIVE (NEGATIVE); BENZODIAZEPINES SCREEN,URINE NEGATIVE (NEGATIVE); CANNABINOID SCREEN,URINE POSITIVE (NEGATIVE); COCAINE SCREEN,URINE NEGATIVE (NEGATIVE); METHADONE SCREEN, URINE NEGATIVE (NEGATIVE); OPIATE SCREEN,URINE NEGATIVE (NEGATIVE); PHENCYCLIDINE SCREEN,URINE NEGATIVE (NEGATIVE)
[2021-01-08] MEDS ORDERED: FluPHENAZine HCL 5 MG TABLET PO PRN (18:15)
[2021-01-08] MEDS ORDERED: ZOLPIDEM TARTRATE 10 MG TABLET PO PRN (18:15)
[2021-01-08] MEDS ORDERED: INFLUENZA VIRUS VACCINE QVS 2020-21 (6MO+)/PF 60 MCG/0.5 ML SYRINGE IM ONE (21:15)
[2021-01-09] MEDS: LORazepam 2 MG TABLET PO PRN ×3 (07:01→19:53)
[2021-01-09] MEDS ORDERED: IBUPROFEN 600 MG TABLET PO PRN (10:00)
[2021-01-09] MEDS ORDERED: ONDANSETRON HCL 4 MG TABLET PO PRN (10:00)
[2021-01-09] MEDS ORDERED: PETROLATUM,WHITE 28 GM JELLY TP PRN (10:00)
[2021-01-09] MEDS ORDERED: BENZOCAINE/MENTHOL LOZENGE PO PRN (10:00)
[2021-01-09] MEDS ORDERED: DOCUSATE SODIUM 100 MG CAPSULE PO PRN (10:00)
[2021-01-09] MEDS ORDERED: MAGNESIUM HYDROXIDE SUSPENSION 30 ML UDCUP PO PRN (10:00)
[2021-01-09] MEDS ORDERED: OMEPRAZOLE 20 MG CAPSULE PO PRN (10:00)
[2021-01-09] MEDS ORDERED: CloNIDine HCL 0.1 MG TABLET PO PRN (10:00)
[2021-01-09] MEDS ORDERED: LOPERAMIDE HCL 2 MG CAPSULE PO PRN (10:00)
[2021-01-09] MEDS ORDERED: ALBUTEROL SULFATE HFA 90 MCG/PUFF 8 GM INHALER IH PRN (10:00)
[2021-01-09] MEDS ORDERED: BACITRACIN 28 GM OINTMENT TP PRN (10:00)
[2021-01-09] MEDS: ACETAMINOPHEN 325 MG TABLET PO PRN (14:26)
[2021-01-09] MEDS: PALIPERIDONE 6 MG ER TABLET PO SCH ×2 (19:52→21:00)
[2021-01-09] MEDS: TraZODone HCL 150 MG TABLET PO SCH ×2 (19:52→21:00)
[2021-01-10] MEDS: LORazepam 2 MG TABLET PO PRN ×2 (03:16→09:28)
[2021-01-10 08:29] VITALS: BP 111/74
[2021-01-10] MEDS: LamoTRIgine 100 MG TABLET PO SCH (09:29)
[2021-01-10] MEDS: BusPIRone HCL 5 MG TABLET PO SCH ×3 (09:29→17:28)
[2021-01-10] MEDS: HydrOXYzine HCL 50 MG TABLET PO SCH ×2 (09:29→17:28)
[2021-01-10] MEDS: BACITRACIN 28 GM OINTMENT TP SCH ×2 (14:45→17:00)
[2021-01-10] MEDS: PALIPERIDONE 6 MG ER TABLET PO SCH (21:00)
[2021-01-10] MEDS: TraZODone HCL 150 MG TABLET PO SCH (21:00)
[2021-01-11] MEDS: HydrOXYzine HCL 50 MG TABLET PO SCH ×3 (07:44→21:20)
[2021-01-11] MEDS: BusPIRone HCL 5 MG TABLET PO SCH ×3 (07:45→16:34)
[2021-01-11] MEDS: LORazepam 2 MG TABLET PO PRN ×3 (07:45→21:20)
[2021-01-11] MEDS: LamoTRIgine 100 MG TABLET PO SCH (07:45)
[2021-01-11 08:35] VITALS: BP 112/81
[2021-01-11 16:37] VITALS: BP 118/55
[2021-01-11] MEDS: PALIPERIDONE 6 MG ER TABLET PO SCH (20:28)
[2021-01-11] MEDS: TraZODone HCL 150 MG TABLET PO SCH (20:28)
[2021-01-12 08:00] VITALS: BP 123/79
[2021-01-12] MEDS: LamoTRIgine 100 MG TABLET PO SCH (09:54)
[2021-01-12] MEDS: BusPIRone HCL 5 MG TABLET PO SCH ×3 (09:54→16:05)
[2021-01-12] MEDS: HydrOXYzine HCL 50 MG TABLET PO SCH ×2 (09:54→16:06)
[2021-01-12] MEDS: BACITRACIN 28 GM OINTMENT TP SCH (09:54)
[2021-01-12] MEDS: LORazepam 2 MG TABLET PO PRN ×3 (11:17→20:07)
[2021-01-12 16:09] VITALS: BP 123/82
[2021-01-12] MEDS: TraZODone HCL 150 MG TABLET PO SCH (21:00)
[2021-01-12] MEDS: PALIPERIDONE 6 MG ER TABLET PO SCH (21:00)
[2021-01-13] MEDS: HydrOXYzine HCL 50 MG TABLET PO SCH ×2 (08:20→16:09)
[2021-01-13] MEDS: BusPIRone HCL 5 MG TABLET PO SCH ×3 (08:20→16:09)
[2021-01-13] MEDS: LamoTRIgine 100 MG TABLET PO SCH (08:20)
[2021-01-13 08:21] VITALS: BP 121/74
[2021-01-13] MEDS: LORazepam 2 MG TABLET PO PRN ×2 (08:22→16:12)
[2021-01-13] MEDS: ACETAMINOPHEN 325 MG TABLET PO PRN (08:22)
[2021-01-13] MEDS: BACITRACIN 28 GM OINTMENT TP SCH (08:24)
[2021-01-13 16:09] VITALS: BP 128/83
[2021-01-13 17:31] LABS: COVID AG,FIA SOURCE NASOPHARYNGEAL
[2021-01-13] MEDS: PALIPERIDONE 6 MG ER TABLET PO SCH (20:20)
[2021-01-13] MEDS: TraZODone HCL 150 MG TABLET PO SCH (20:22)
[2021-01-14 08:00] VITALS: BP 115/62
[2021-01-14] MEDS: HydrOXYzine HCL 50 MG TABLET PO SCH ×2 (08:46→16:10)
[2021-01-14] MEDS: LamoTRIgine 100 MG TABLET PO SCH (08:46)
[2021-01-14] MEDS: LORazepam 2 MG TABLET PO PRN (08:46)
[2021-01-14] MEDS: BusPIRone HCL 5 MG TABLET PO SCH ×3 (08:46→16:10)
[2021-01-14] MEDS: BACITRACIN 28 GM OINTMENT TP SCH (10:17)
[2021-01-14 16:20] VITALS: BP 93/50
[2021-01-14] MEDS: TraZODone HCL 150 MG TABLET PO SCH (20:13)
[2021-01-14] MEDS: PALIPERIDONE 6 MG ER TABLET PO SCH (20:14)
[2021-01-15 08:00] VITALS: BP 130/75
[2021-01-15] MEDS: LamoTRIgine 100 MG TABLET PO SCH (08:06)
[2021-01-15] MEDS: BusPIRone HCL 5 MG TABLET PO SCH ×3 (08:06→16:18)
[2021-01-15] MEDS: LORazepam 2 MG TABLET PO PRN (08:06)
[2021-01-15] MEDS: HydrOXYzine HCL 50 MG TABLET PO SCH ×2 (08:06→16:18)
[2021-01-15] MEDS: BACITRACIN 28 GM OINTMENT TP SCH (08:07)
[2021-01-15 16:17] VITALS: BP 118/71
[2021-01-15] MEDS: PALIPERIDONE 6 MG ER TABLET PO SCH (21:00)
[2021-01-15] MEDS: TraZODone HCL 150 MG TABLET PO SCH (21:00)
[2021-01-16] MEDS: BusPIRone HCL 5 MG TABLET PO SCH ×3 (08:45→16:22)
[2021-01-16] MEDS: HydrOXYzine HCL 50 MG TABLET PO SCH ×2 (08:45→16:22)
[2021-01-16] MEDS: LamoTRIgine 100 MG TABLET PO SCH (08:45)
[2021-01-16] MEDS: BACITRACIN 28 GM OINTMENT TP SCH (09:39)
[2021-01-16 09:49] VITALS: BP 101/66
[2021-01-16] MEDS: LORazepam 2 MG TABLET PO PRN (15:57)
[2021-01-16] MEDS: MAG HYDROX/AL HYDROX/SIMETH ES 30 ML SUSPENSION UDCUP PO PRN (16:20)
[2021-01-16 17:49] VITALS: BP 122/64
[2021-01-16] MEDS: ACETAMINOPHEN 325 MG TABLET PO PRN (17:52)
[2021-01-16 17:54] VITALS: BP 147/69
[2021-01-16] MEDS: TraZODone HCL 150 MG TABLET PO SCH (20:28)
[2021-01-16] MEDS: PALIPERIDONE 6 MG ER TABLET PO SCH (20:28)
[2021-01-17] MEDS: LamoTRIgine 100 MG TABLET PO SCH (08:12)
[2021-01-17] MEDS: BusPIRone HCL 5 MG TABLET PO SCH ×3 (08:12→16:03)
[2021-01-17] MEDS: HydrOXYzine HCL 50 MG TABLET PO SCH ×2 (08:12→16:03)
[2021-01-17] MEDS: BACITRACIN 28 GM OINTMENT TP SCH (08:12)
[2021-01-17 09:02] VITALS: BP 156/65
[2021-01-17] MEDS: LORazepam 2 MG TABLET PO PRN (13:30)
[2021-01-17 16:07] VITALS: BP 92/78
[2021-01-17] MEDS: MAG HYDROX/AL HYDROX/SIMETH ES 30 ML SUSPENSION UDCUP PO PRN (16:08)
== END 2021-01-17 16:30 | disposition home or self-care (01) | DRG 750 ==
LOC: EMS 15:00 → 3EC 18:03
PROVIDERS: ADMIT Psychiatry & Neurology Psychiatry; ATTEND Psychiatry & Neurology Psychiatry
DX: F25.9 Schizoaffective disorder, unspecified (principal); G47.00 Insomnia, unspecified; F41.9 Anxiety disorder, unspecified; K59.00 Constipation, unspecified; K21.9 Gastro-esophageal reflux disease without esophagitis; F19.10 Other psychoactive substance abuse, uncomplicated; R45.851 Suicidal ideations; F12.90 Cannabis use, unspecified, uncomplicated; F17.200 Nicotine dependence, unspecified, uncomplicated; J44.9 Chronic obstructive pulmonary disease, unspecified; Z88.8 Allergy status to other drugs, medicaments and biological substances; F31.9 Bipolar disorder, unspecified; J45.909 Unspecified asthma, uncomplicated; Z20.822 Contact with and (suspected) exposure to COVID-19; R03.1 Nonspecific low blood-pressure reading; R03.0 Elevated blood-pressure reading, without diagnosis of hypertension; Z28.21 Immunization not carried out because of patient refusal
CPT/HCPCS: 83735; 87426; 93005; 99285; G0480; G0481; J3535

== ENCOUNTER 2023-09-03 19:08 | Emergency (ER) | payer MEDICAID ==
[~2023-09-03] VITALS: Ht 167.6 cm; Wt 68.2 kg
[~2023-09-03 19:08] MED LIST changes: +BUSP5TAB20 PO; -FERR-89 PO; -HYD50 PO; +HYDR-4584 PO; +LAMO-24 PO; -LAMO100 PO; -TRAZ150 PO; +TRAZ150T80 PO
[2023-09-03] MEDS ORDERED: LEVE10006 PO (19:37)
[2023-09-03 22:29] LABS: APPEARANCE,URINE TURBID (CLEAR); BILIRUBIN,URINE NEGATIVE (NEGATIVE); COLOR,URINE YELLOW (YELLOW); GLUCOSE, URINE (UA) NEGATIVE (NEGATIVE); KETONES,URINE NEGATIVE (NEGATIVE); LEUKOCYTE ESTERASE ,URINE LARGE (NEGATIVE); NITRATE,URINE POSITIVE (NEGATIVE); OCCULT BLOOD,URINE LARGE (NEGATIVE); PROTEIN,URINE 100-200,SEE CONFIRM mg/dL (NEGATIVE); SPECIFIC GRAVITIY, URINE 1.029 (1.003-1.030); UROBILINOGEN,URINE <=1.0 mg/dL (<=1.0)
[2023-09-03] MEDS ORDERED: CEPHALEXIN MONOHYDRATE 500 MG CAPSULE PO ONE (22:30)
[2023-09-03 22:36] LABS: ALCOHOL, URINE DRUG SCREEN NEGATIVE (NEGATIVE); AMPHET/METH SCREEN,URINE POSITIVE (NEGATIVE); BARBITURATE SCREEN, URINE NEGATIVE (NEGATIVE); BENZODIAZEPINES SCREEN,URINE NEGATIVE (NEGATIVE); CANNABINOID SCREEN,URINE POSITIVE (NEGATIVE); COCAINE SCREEN,URINE NEGATIVE (NEGATIVE); METHADONE SCREEN, URINE NEGATIVE (NEGATIVE); OPIATE SCREEN,URINE NEGATIVE (NEGATIVE); PHENCYCLIDINE SCREEN,URINE NEGATIVE (NEGATIVE)
[2023-09-03] MEDS ORDERED: LevETIRAcetam 500 MG TABLET PO ONE (22:45)
[2023-09-03 22:47] LABS: BACTERIA,URINE Many /HPF (None Seen); SULFOSALICYLIC ACID,URINE 1+ (Negative); WBC,URINE >100 /HPF (0-5)
[2023-09-03 22:48] LABS: SQUAMOUS EPITHELIAL CELL,UR Rare /LPF (None Seen)
[2023-09-04 00:30] VITALS: TEMP 98.6
[2023-09-04 02:00] VITALS: BP 124/68; PULSE 99; RESP 18
== END 2023-09-04 02:06 | disposition home or self-care (01) ==
LOC: EMS 19:09
DX: N39.0 Urinary tract infection, site not specified (principal); J45.909 Unspecified asthma, uncomplicated; F31.9 Bipolar disorder, unspecified; F20.9 Schizophrenia, unspecified; F17.210 Nicotine dependence, cigarettes, uncomplicated; F12.90 Cannabis use, unspecified, uncomplicated; F15.90 Other stimulant use, unspecified, uncomplicated; Z59.00 Homelessness unspecified; Z88.6 Allergy status to analgesic agent; Z88.8 Allergy status to other drugs, medicaments and biological substances
CPT/HCPCS: 74022; 80307; 81001; 81002; 87086; 87186; 93005; 99285